=== PATIENT | female | born 1955 | race Caucasian/White ===

== ENCOUNTER 2016-07-25 00:20 | Emergency (ER) | payer MEDICARE ==
[~2016-07-25] VITALS: Ht 170.2 cm; Wt 68.0 kg
[~2016-07-25 00:20] MED LIST: AUGM875T PO; CELE20TA PO; CEPH-460 PO; CHLO25CA2 PO; CIPR-9 PO; CLON0.1T PO; METF500T PO; ROSU40 PO; SYNT25TA PO
[2016-07-25 00:23] VITALS: BP 134/74; PULSE 66; RESP 14; TEMP 98.1; O2SAT 93
[2016-07-25] MEDS ORDERED: ONDANSETRON HCL 4 MG/2 ML VIAL IVP ONE (00:30)
[2016-07-25] MEDS ORDERED: SODIUM CHLORIDE 0.9% FLUSH 5 ML FLUSH IVF PRN (00:30)
--- NOTE | 2016-07-25 00:52 | PD ---
HPI Chief Complaint: Syncope/Near-Syncope Time Seen by Provider: 00:23 Travel History International Travel<30 days: No Contact w/Intl Traveler<30days: No Traveled to known affect area: No History of Present Illness HPI 60-year-old female with history of HLD, DM and frequent syncopal episodes here with complaint of syncope. Patient states that she was at a bar, and had a half a drink. [place] her blood sugar going low and checked it it was in the 40s. Drink orange juice and had candy and by the time EMS arrived blood sugar had normalized. Patient apparently had several brief syncopal episodes while at the bar prompting glenna to call 911. Patient states she feels belchy, lightheaded and nauseated. No chest pain, shortness of breath. Reported history of frequent syncope, unknown etiology. PFSH Past Medical History Hx Anticoagulant Therapy: Yes (81MG LOW DOSE ASA) Arthritis: No Blood Disorders: No Anxiety: Yes Depression: Yes Heart Rhythm Problems: No Cancer: No Cardiovascular Problems: No High Cholesterol: Yes COPD: No Cerebrovascular Accident: No Diabetes: Yes Diminished Hearing: No Endocrine: No Gastrointestinal Disorders: No Genitourinary: Yes (frequent UTI) Headaches: Yes Immune Disorder: No Musculoskeletal: No Neurologic: Yes Psychiatric: Yes Reproductive: No Respiratory: No Migraines: No Seizures: No Sickle Cell Disease: No Thyroid Disease: Yes Menopausal: Yes Dilation and Curettage (D&C): Yes Past Surgical History Abdominal Surgery: No AICD: No Arteriovenous Shunt: No Cardiac Surgery: No Ear Surgery: No Endocrine Surgery: No Eye Surgery: No Genitourinary Surgery: No Gynecologic Surgery: Yes (D&C 2005) Insulin Pump: No Joint Replacement: No Neurologic Surgery: No Oral Surgery: Yes (teeth pulled) Pacemaker: No Thoracic Surgery: No Other Surgery: Yes (knee surgery 2003) Social History Alcohol Use: No Tobacco Use: Yes Substance Use: No Allergies-Medications (Allergen,Severity, Reaction): Coded Allergies: Codeine (Verified Allergy, Severe, FAINTED/NAUSEA AND VOMITING, 07/25/16) Reported Meds & Prescriptions Reported Meds & Active Scripts Active Reported Vistaril (Hydroxyzine Pamoate) 50 Mg Cap 50 Mg PO BID Synthroid (Levothyroxine Sodium) 25 Mcg Tab 25 Mcg PO DAILY Crestor (Rosuvastatin Calcium) 40 Mg Tab 40 Mg PO DAILY Clonidine (Clonidine HCl) 0.1 Mg Tab 0.25 Mg PO BID Metformin (Metformin HCl) 500 Mg Tab 500 Mg PO BIDPC With meals Celexa (Citalopram Hydrobromide) 20 Mg Tab 20 Mg PO DAILY Chlordiazepoxide (Chlordiazepoxide HCl) 25 Mg Cap 25 Mg PO QID PRN Review of Systems Except as stated in HPI: all other systems reviewed are Neg Physical Exam Narrative GENERAL: Middle-aged female in no acute distress SKIN: Warm and dry. HEAD: Normocephalic. EYES: No scleral icterus. No injection or drainage. ENT: Mucous membranes pink and moist. NECK: Supple CARDIOVASCULAR: Regular rate and rhythm. No murmur appreciated. RESPIRATORY: No accessory muscle use. Clear to auscultation. Breath sounds equal bilaterally. GASTROINTESTINAL: Abdomen soft, non-tender, nondistended. MUSCULOSKELETAL: No obvious deformities. No edema. NEUROLOGICAL: Awake and alert. No obvious cranial nerve deficits. Motor grossly within normal limits. Normal speech. PSYCHIATRIC: Blunted mood and affect Data Data Last Documented VS Vital Signs Date Time Temp Pulse Resp B/P Pulse Ox O2 Delivery O2 Flow Rate FiO2 07/25/16:23 98.1 66 14 134/74 93 Orders Electrocardiogram (07/25/16:) Complete Blood Count With Diff (07/25/16:) Comprehensive Metabolic Panel (07/25/16:) Magnesium (Mg) (07/25/16:23) Troponin I (07/25/16:) Ecg Monitoring (07/25/16:) Iv Access Insert/Monitor (07/25/16:) Oximetry (07/25/16:) Ondansetron Inj (Zofran Inj) (07/25/16 00:30) Sodium Chloride 0.9% Flush (Ns Flush) (07/25/16 00:30) Lipase (07/25/16:23) Alcohol (Ethanol) (07/25/16:23) Labs Laboratory Tests Test 07/25/16 00:27 White Blood Count 9.6 TH/MM3 Red Blood Count 4.91 MIL/MM3 Hemoglobin 14.2 GM/DL Hematocrit 40.6 % Mean Corpuscular Volume 82.7 FL Mean Corpuscular Hemoglobin 29.0 PG Mean Corpuscular Hemoglobin 35.0 % Concent Red Cell Distribution Width 15.0 % Platelet Count 305 TH/MM3 Mean Platelet Volume 7.8 FL Neutrophils (%) (Auto) 46.5 % Lymphocytes (%) (Auto) 42.1 % Monocytes (%) (Auto) 6.6 % Eosinophils (%) (Auto) 3.6 % Basophils (%) (Auto) 1.2 % Neutrophils # (Auto) 4.5 TH/MM3 Lymphocytes # (Auto) 4.1 TH/MM3 Monocytes # (Auto) 0.6 TH/MM3 Eosinophils # (Auto) 0.3 TH/MM3 Basophils # (Auto) 0.1 TH/MM3 CBC Comment DIFF FINAL Differential Comment Sodium Level 133 MEQ/L Potassium Level 3.9 MEQ/L Chloride Level 99 MEQ/L Carbon Dioxide Level 24.5 MEQ/L Anion Gap 10 MEQ/L Blood Urea Nitrogen 12 MG/DL Creatinine 0.66 MG/DL Estimat Glomerular Filtration 92 ML/MIN Rate Random Glucose 98 MG/DL Calcium Level 8.1 MG/DL Magnesium Level 2.0 MG/DL Total Bilirubin 0.3 MG/DL Aspartate Amino Transf 12 U/L (AST/SGOT) Alanine Aminotransferase 23 U/L (ALT/SGPT) Alkaline Phosphatase 100 U/L Troponin I LESS THAN 0.02 NG/ML Total Protein 6.7 GM/DL Albumin 3.3 GM/DL Lipase 262 U/L Ethyl Alcohol Level LESS THAN 3 MG/DL MDM Medical Decision Making Medical Screen Exam Complete: Yes Emergency Medical Condition: Yes Medical Record Reviewed: Yes Differential Diagnosis 60-year-old diabetic with frequent syncope here with complaint of syncope, nausea and belching which started while she was drinking at a bar. Differential includes alcohol intoxication, hypoglycemia, dehydration, electrolyte abnormality, arrhythmia, symptomatic anemia, ACS, vasovagal spells, neurocardiogenic syncope. Narrative Course Patient placed on monitor, IV established and blood obtained. Twelve-lead EKG shows sinus rhythm without notable ST abnormalities, normal intervals. No evidence of prolonged QT, WPW, Brugada. Patient was given 4 mg Zofran. CBC, CMP, lipase, magnesium, troponin, blood alcohol level obtained and unremarkable. Patient reassured and discharged home. Diagnosis Primary Impression: Syncope Qualified Code: R55 - Syncope, unspecified syncope type Referrals: Primary Care Physician call for appointment Additional Instructions: Follow-up with primary care provider as instructed. Blood work, EKG today were normal. Med/Other Pt SpecificInfo: No Change to Meds Disposition: 01 DISCHARGE HOME Condition: Stable Brittany Chavez MD Jul 25, 2016 00:52
[2016-07-25 00:54] LABS: AUTOMATED NEUTROPHIL # 4.5 TH/MM3 (1.8-7.7); BASOPHIL # 0.1 TH/MM3 (0-0.2); BASOPHIL % 1.2 % (0.0-2.0); EOSINOPHIL # 0.3 TH/MM3 (0-0.4); EOSINOPHIL % 3.6 % (0.0-4.0); HEMATOCRIT 40.6 % (35.0-46.0); HEMO FLAGS DIFF FINAL; LYMPH % 42.1 % (9.0-44.0); LYMPHOCYTE # 4.1 TH/MM3 (1.0-4.8); MEAN CELL VOLUME 82.7 FL (80.0-100.0); MONO % 6.6 % (0.0-8.0); NEUT % 46.5 % (16.0-70.0); PLATELET COUNT 305 TH/MM3 (150-450); RED BLOOD COUNT 4.91 MIL/MM3 (4.00-5.30); WHITE BLOOD COUNT 9.6 TH/MM3 (4.0-11.0)
[2016-07-25] MEDS ORDERED: VIST50CA PO (00:55)
[2016-07-25 01:16] LABS: ALKALINE PHOSPHATASE 100 U/L (45-117); ALT (GPT) 23 U/L (10-53); ANION GAP 10 MEQ/L (5-15); AST (GOT) 12 U/L (15-37); BICARBONATE 24.5 MEQ/L (21.0-32.0); BLOOD UREA NITROGEN 12 MG/DL (7-18); CHLORIDE 99 MEQ/L (98-107); GLOMERULAR FILTRATION RATE 92 ML/MIN (>89); POTASSIUM 3.9 MEQ/L (3.5-5.1); SODIUM (NA) 133 MEQ/L (136-145); TOTAL BILIRUBIN ADULT 0.3 MG/DL (0.2-1.0)
[2016-07-25 02:25] VITALS: BP 130/57
== END 2016-07-25 02:34 | disposition home or self-care (01) ==
LOC: NEPE 00:20
DX: R55 Syncope and collapse (principal); E11.9 Type 2 diabetes mellitus without complications; E78.00 Pure hypercholesterolemia, unspecified; Z72.0 Tobacco use; Z79.84 Long term (current) use of oral hypoglycemic drugs; Z79.82 Long term (current) use of aspirin
CPT/HCPCS: 80053; 80320; 83690; 83735; 84484; 85025; 96374; 99284; J2405

== ENCOUNTER 2017-01-16 14:40 | Emergency (ER) | payer MEDICARE, OTHER ==
[~2017-01-16] VITALS: Ht 170.2 cm; Wt 70.0 kg
[~2017-01-16 14:40] MED LIST changes: -AUGM875T PO; -CEPH-460 PO; -CIPR-9 PO; +VIST50CA PO
[2017-01-16 14:41] VITALS: BP 141/61; TEMP 97.7; O2SAT 95
[2017-01-16 16:23] LABS: BLOOD, URINE SMALL (NEG); COMMENT (UR) CULT NOT INDICATED; CULTURE IF INDICATED CULT NOT INDICATED; GLUCOSE,URINE NEG (NEG); KETONE, URINE NEG (NEG); NITRITE,URINE NEG (NEG); PH, URINE 5.5 (5.0-8.5); SQUAMOUS EPITHELIAL CELL URINE 1 /hpf (0-5); URINE COLOR YELLOW (YELLW/STRAW)
[2017-01-16] MEDS ORDERED: SODIUM CHLOR 0.9% 1000 ML INJ 1,000 ML IV SCH (17:02)
--- NOTE | 2017-01-16 17:06 | PD ---
HPI Chief Complaint: Complaint Time Seen by Provider: 17:00 Travel History International Travel<30 days: No Contact w/Intl Traveler<30days: No Traveled to known affect area: No History of Present Illness HPI 61-year-old female here for evaluation of urinary frequency, dysuria, and left flank pain. Patient reports that she was seen by her primary care physician 2 days ago for the same symptoms. She reports history of frequent UTIs and has been on several different antibiotics. She reports having a fever of 101F at home. Back pain started in her lower back, radiates to her left flank into her lower abdomen. Pain is sharp, moderate, worse with movements and palpation. No urinary or bowel incontinence or retention. No paresthesias or motor deficits. PFSH Past Medical History Hx Anticoagulant Therapy: Yes (81MG LOW DOSE ASA) Arthritis: No Blood Disorders: No Anxiety: Yes (Panic attacks) Depression: Yes Heart Rhythm Problems: No Cancer: No Cardiovascular Problems: No High Cholesterol: Yes COPD: No Cerebrovascular Accident: No Diabetes: Yes Diminished Hearing: No Endocrine: No Gastrointestinal Disorders: No Genitourinary: Yes (frequent UTI) Headaches: Yes Immune Disorder: No Musculoskeletal: No Neurologic: Yes Psychiatric: Yes Reproductive: No Respiratory: No Migraines: No Seizures: No Sickle Cell Disease: No Thyroid Disease: Yes Menopausal: Yes : 3 Para: 3 Dilation and Curettage (D&C): Yes Past Surgical History Abdominal Surgery: No AICD: No Arteriovenous Shunt: No Cardiac Surgery: No Ear Surgery: No Endocrine Surgery: No Eye Surgery: No Genitourinary Surgery: No Gynecologic Surgery: Yes (D&C 2005) Insulin Pump: No Joint Replacement: No Neurologic Surgery: No Oral Surgery: Yes (teeth pulled) Pacemaker: No Thoracic Surgery: No Other Surgery: Yes (knee surgery 2003) Social History Alcohol Use: Yes (Social) Tobacco Use: Yes (07/12 PPD) Substance Use: No Allergies-Medications (Allergen,Severity, Reaction): Coded Allergies: Codeine (Verified Allergy, Severe, FAINTED/NAUSEA AND VOMITING, 01/16/17) Reported Meds & Prescriptions Reported Meds & Active Scripts Active Reported Chlordiazepoxide HCl 25 Mg Capsule 2 Cap PO DAILY Vistaril (Hydroxyzine Pamoate) 50 Mg Cap 50 Mg PO BID Synthroid (Levothyroxine Sodium) 25 Mcg Tab 25 Mcg PO DAILY Crestor (Rosuvastatin Calcium) 40 Mg Tab 40 Mg PO DAILY Metformin (Metformin HCl) 500 Mg Tab 500 Mg PO BIDPC With meals Celexa (Citalopram Hydrobromide) 20 Mg Tab 20 Mg PO DAILY Review of Systems Except as stated in HPI: all other systems reviewed are Neg Physical Exam Narrative GENERAL: Well-developed, well-nourished, no apparent distress. SKIN: Focused skin assessment warm/dry. No rash. HEAD: Atraumatic. Normocephalic. EYES: Pupils equal and round. No scleral icterus. No injection or drainage. ENT: Mucous membranes pink and moist. NECK: Trachea midline. No JVD. CARDIOVASCULAR: Regular rate and rhythm. No murmur appreciated. RESPIRATORY: No accessory muscle use. Clear to auscultation. Breath sounds equal bilaterally. GASTROINTESTINAL: Abdomen soft, nondistended. Moderate suprapubic tenderness without peritoneal signs. Normal bowel sounds. MUSCULOSKELETAL: No obvious deformities. No clubbing. No cyanosis. No edema. No midline vertebral step-off or tenderness. NEUROLOGICAL: Awake and alert. No obvious cranial nerve deficits. Motor grossly within normal limits. Normal speech. Normal motor and sensory to all 4 extremity's. No saddle anesthesia. PSYCHIATRIC: Appropriate mood and affect; insight and judgment normal. Data Data Last Documented VS Vital Signs Date Time Temp Pulse Resp B/P Pulse Ox O2 Delivery O2 Flow Rate FiO2 01/16/17 14:41 97.7 95 22 141/61 95 Orders Urinalysis - C+S If Indicated (01/16/17 15:15) Complete Blood Count With Diff (01/16/17 17:02) Comprehensive Metabolic Panel (01/16/17 17:02) Lipase (01/16/17 17:02) Prothrombin Time / Inr (Pt) (01/16/17 17:02) Act Partial Throm Time (Ptt) (01/16/17 17:02) Ct Abd/Pel W Iv Contrast(Rout) (01/16/17 17:02) Iv Access Insert/Monitor (01/16/17 17:02) Ecg Monitoring (01/16/17 17:02) Oximetry (01/16/17 17:02) Morphine Inj (Morphine Inj) (01/16/17 17:15) Ondansetron Inj (Zofran Inj) (7/9/17 17:15) Sodium Chlor 0.9% 1000 Ml Inj (Ns 1000 M (01/16/17 17:02) Sodium Chloride 0.9% Flush (Ns Flush) (01/16/17 17:15) Iohexol 350 Inj (Omnipaque 350 Inj) (01/16/17 18:14) Urine Culture (01/16/17 18:14) Labs Laboratory Tests Test 01/16/17 01/16/17 15:26 17:31 Urine Color YELLOW Urine Turbidity CLEAR Urine pH 5.5 Urine Specific [place] 1.011 Urine Protein NEG mg/dL Urine Glucose (UA) NEG mg/dL Urine Ketones NEG mg/dL Urine Occult Blood SMALL Urine Nitrite NEG Urine Bilirubin NEG Urine Urobilinogen LESS THAN 2.0 MG/DL Urine Leukocyte Esterase LARGE Urine RBC 1 /hpf Urine WBC 5 /hpf Urine Squamous Epithelial 1 /hpf Cells Urine Amorphous Sediment RARE Microscopic Urinalysis Comment CULT NOT INDICATED White Blood Count 7.4 TH/MM3 Red Blood Count 4.90 MIL/MM3 Hemoglobin 14.0 GM/DL Hematocrit 42.8 % Mean Corpuscular Volume 87.5 FL Mean Corpuscular Hemoglobin 28.7 PG Mean Corpuscular Hemoglobin 32.8 % Concent Red Cell Distribution Width 14.5 % Platelet Count 274 TH/MM3 Mean Platelet Volume 7.8 FL Neutrophils (%) (Auto) 42.0 % Lymphocytes (%) (Auto) 47.3 % Monocytes (%) (Auto) 6.9 % Eosinophils (%) (Auto) 3.2 % Basophils (%) (Auto) 0.6 % Neutrophils # (Auto) 3.1 TH/MM3 Lymphocytes # (Auto) 3.5 TH/MM3 Monocytes # (Auto) 0.5 TH/MM3 Eosinophils # (Auto) 0.2 TH/MM3 Basophils # (Auto) 0.0 TH/MM3 CBC Comment DIFF FINAL Differential Comment Prothrombin Time 10.4 SEC Prothromb Time International 0.9 RATIO Ratio Activated Partial 26.5 SEC Thromboplast Time Sodium Level 138 MEQ/L Potassium Level 4.5 MEQ/L Chloride Level 105 MEQ/L Carbon Dioxide Level 29.6 MEQ/L Anion Gap 3 MEQ/L Blood Urea Nitrogen 12 MG/DL Creatinine 0.84 MG/DL Estimat Glomerular Filtration 69 ML/MIN Rate Random Glucose 93 MG/DL Calcium Level 9.0 MG/DL Total Bilirubin 0.4 MG/DL Aspartate Amino Transf 19 U/L (AST/SGOT) Alanine Aminotransferase 30 U/L (ALT/SGPT) Alkaline Phosphatase 111 U/L Total Protein 7.0 GM/DL Albumin 3.5 GM/DL Lipase 284 U/L [facility] Medical Decision Making Medical Screen Exam Complete: Yes Emergency Medical Condition: Yes Medical Record Reviewed: Yes Differential Diagnosis UTI, polynephritis, nephrolithiasis, ureterolithiasis, pyelonephritis, colitis, diverticulitis, musculoskeletal pain, dissection, AAA, Narrative Course Vital signs show heart rate 95, blood pressure 141/61, pulse ox 95% on room air , oral temp of 97.7F. CBC is unremarkable. CMP is unremarkable. Lipase is 284. UA shows small occult blood, large leukocyte esterase, 5 WBCs, negative nitrites. Urine culture ordered. CT abdomen pelvis: CONCLUSION: 1. The kidneys are within normal limits with no renal calculi or obstruction. There is a simple cyst in the left kidney. 2. Mild to moderate hepatic steatosis. Patient was made aware of all findings. She is still complaining of left flank pain and is requesting an antibiotic. I think this is reasonable given her symptoms of dysuria and increased urinary frequency as well as leukocyte esterase and occult hematuria. She has no red flags for low back pain. She has had similar symptoms in the past. Plan is to give her a dose of IV Rocephin here in the emergency department and discharged home with a perception for Macrobid. Again urine cultures were ordered. Patient is stable for discharge home with outpatient follow-up with her primary care physician this week. She was informed on when to return to the emergency department. She verbalizes understanding and agreement with plan. Diagnosis Primary Impression: Flank pain Additional Impression: Dysuria Referrals: Primary Care Physician 3 days Additional Instructions: Follow-up with your primary care physician this week. Return to the emergency department for worsening symptoms or any other concerns. Scripts Hydrocodone-Acetaminophen (Lortab)5-325 Mg Tab1 Tab PO Q6H PRN (PAIN) #10 TAB Ref 0 Prov:Napoleon Guthrie MD 01/16/17 Nitrofurantoin Monohydrate Macrocrystals (Macrobid)100 Mg [id number] Mg PO BID 7 Days Ref 0 Prov:Napoleon Guthrie MD 01/16/17 Disposition: 01 DISCHARGE HOME Condition: Stable Napoleon Guthrie MD Jan 16, 2017 17:06
[2017-01-16] MEDS ORDERED: CHLO25CA9 PO (17:07)
[2017-01-16] MEDS ORDERED: SODIUM CHLORIDE 0.9% FLUSH 10 ML FLUSH IV FLUSH PRN (17:15)
[2017-01-16] MEDS ORDERED: ONDANSETRON HCL 4 MG/2 ML VIAL IVP ONE (17:15)
[2017-01-16] MEDS ORDERED: MORPHINE SULFATE 4 MG/ML INJ IV PUSH ONE (17:15)
[2017-01-16 17:59] LABS: AUTOMATED NEUTROPHIL # 3.1 TH/MM3 (1.8-7.7); BASOPHIL % 0.6 % (0.0-2.0); EOSINOPHIL # 0.2 TH/MM3 (0-0.4); EOSINOPHIL % 3.2 % (0.0-4.0); HEMATOCRIT 42.8 % (35.0-46.0); HEMO FLAGS DIFF FINAL; LYMPH % 47.3 % (9.0-44.0); LYMPHOCYTE # 3.5 TH/MM3 (1.0-4.8); MEAN CELL VOLUME 87.5 FL (80.0-100.0); MEAN CORPUSCULAR HEMOGLOBIN 28.7 PG (27.0-34.0); MEAN CORPUSCULAR HGB CONC 32.8 % (32.0-36.0); MONO % 6.9 % (0.0-8.0); PLATELET COUNT 274 TH/MM3 (150-450); RED CELL DISTRIBUTION WIDTH 14.5 % (11.6-17.2); WHITE BLOOD COUNT 7.4 TH/MM3 (4.0-11.0)
[2017-01-16] MEDS ORDERED: IOHEXOL 350 MG/ML 10 ML VIAL (for RAD DIAG) IV ONE (18:14)
[2017-01-16 18:18] LABS: ANION GAP 3 MEQ/L (5-15); AST (GOT) 19 U/L (15-37); BICARBONATE 29.6 MEQ/L (21.0-32.0); BLOOD UREA NITROGEN 12 MG/DL (7-18); CHLORIDE 105 MEQ/L (98-107); GLOMERULAR FILTRATION RATE 69 ML/MIN (>89); POTASSIUM 4.5 MEQ/L (3.5-5.1); SODIUM (NA) 138 MEQ/L (136-145)
[2017-01-16 18:19] LABS: ALT (GPT) 30 U/L (10-53)
[2017-01-16 18:21] LABS: ALKALINE PHOSPHATASE 111 U/L (45-117); TOTAL BILIRUBIN ADULT 0.4 MG/DL (0.2-1.0)
[2017-01-16 18:23] LABS: APTT (PATIENT) 26.5 SEC (24.3-30.1); INTERNATIONAL NORMALIZED RATIO 0.9 RATIO; PROTHROMBIN TIME - PATIENT 10.4 SEC (9.8-11.6)
--- NOTE | 2017-01-16 18:34 | RADRPT ---
EXAM DATE/TIME: 01/16/2017 18:12 [facility] COMPARISON: CT ABDOMEN & PELVIS W/O CONTRAST, February 07, 2016, 2:11. INDICATIONS : Bilateral flank pain today. IV CONTRAST: 96 cc Omnipaque 350 (iohexol) IV ORAL CONTRAST: No oral contrast ingested. RADIATION DOSE: 13.66 CTDIvol (mGy) MEDICAL HISTORY : diabetes SURGICAL HISTORY : None. ENCOUNTER: Initial ACUITY: 1 day PAIN SCALE: 5/10 LOCATION: Bilateral flank TECHNIQUE: Volumetric scanning of the abdomen and pelvis was performed. Using automated exposure control and ad justment of the mA and/or kV according to patient size, radiation dose was kept as low as reasonably achievable to obtain optimal diagnostic quality images. DICOM format image data is available electro nically for review and comparison. FINDINGS: LOWER LUNGS: Is mild scarring or atelectasis in portions of lung bases. LIVER: Homogeneous density without lesion. There is no dilation of the biliary tree. No calcified gallston es. There is moderate hepatic steatosis. SPLEEN: Normal size without lesion. PANCREAS: Within normal limits. KIDNEYS: Normal in size and shape. There is no solid mass, stone or hydronephrosis. There is a simple cyst in the left kidney measuring up to 2 cm. The visualized portions of the ureters are unremarkable. ADRENAL GLANDS: Within normal limits. VASCULAR: There is no aortic aneurysm. Chronic changes are present calcification in plaque. BOWEL/MESENTERY: The stomach, small bowel, and colon demonstrate no acute abnormality. There is no free intraperitone al air or fluid. ABDOMINAL WALL: Within normal limits. RETROPERITONEUM: There is no lymphadenopathy. BLADDER: No wall thickening or mass. REPRODUCTIVE: Within normal limits. INGUINAL: There is no lymphadenopathy or hernia. MUSCULOSKELETAL: Within normal limits for patient age. CONCLUSION: 1. The kidneys are within normal limits with no renal calculi or obstruction. There is a simple cyst in the left kidney. 2. Mild to moderate hepatic steatosis. Miguelito Mcmahan MD on January 16, 2017 at 18:29 Board Certified Radiologist. This report was verified electronically.
[2017-01-16] MEDS ORDERED: MACR100C2 PO (18:51)
[2017-01-16] MEDS ORDERED: HYDR-3533 PO (18:51)
[2017-01-16] MEDS ORDERED: cefTRIAXone INJ 1,000 MG in SODIUM CHLORIDE 0.9% INJ 100 ML IV ONE (19:00)
== END 2017-01-16 19:44 | disposition home or self-care (01) ==
LOC: NEPD 14:40
DX: R10.9 Unspecified abdominal pain (principal); R30.0 Dysuria; N28.1 Cyst of kidney, acquired; K76.0 Fatty (change of) liver, not elsewhere classified; E11.9 Type 2 diabetes mellitus without complications; E78.00 Pure hypercholesterolemia, unspecified; F41.9 Anxiety disorder, unspecified; F32.9 Major depressive disorder, single episode, unspecified; Z79.899 Other long term (current) drug therapy
CPT/HCPCS: 74177; 80053; 81001; 83690; 85025; 85610; 85730; 87086; 96361; 96374; 96375; 99285; J0696; J2270; J2405; J7030; Q9967

== ENCOUNTER 2017-01-18 14:50 | Emergency (ER) | payer MEDICARE ==
[~2017-01-18] VITALS: Ht 170.2 cm; Wt 72.0 kg
[~2017-01-18 14:50] MED LIST changes: -CHLO25CA2 PO; +CHLO25CA9 PO; -CLON0.1T PO; +HYDR-3533 PO; +MACR100C2 PO
[2017-01-18 14:52] VITALS: BP 176/78; PULSE 91; RESP 15; TEMP 98.2; O2SAT 98
--- NOTE | 2017-01-18 15:34 | PD ---
Physical Exam Time Seen by Provider: 15:32 Narrative 61 y/o female here with several days of urinary hesitancy, back/lower abdomen pain. Seen here on 01/16 for this issue. Vital signs reviewed. Seen at triage desk. Awaiting bed placement. Data Data Last Documented VS Vital Signs Date Time Temp Pulse Resp B/P Pulse Ox O2 Delivery O2 Flow Rate FiO2 01/18/17 14:52 98.2 91 15 176/78 98 MDM Medical Record Reviewed: Yes Supervised Visit with NICHO: Micah Bateman Jan 18, 2017 15:34
[2017-01-18 16:51] LABS: AUTOMATED NEUTROPHIL # 4.3 TH/MM3 (1.8-7.7); BASOPHIL # 0.1 TH/MM3 (0-0.2); BASOPHIL % 0.7 % (0.0-2.0); EOSINOPHIL # 0.2 TH/MM3 (0-0.4); EOSINOPHIL % 2.5 % (0.0-4.0); HEMATOCRIT 46.3 % (35.0-46.0); HEMO FLAGS DIFF FINAL; LYMPH % 39.9 % (9.0-44.0); LYMPHOCYTE # 3.3 TH/MM3 (1.0-4.8); MEAN CORPUSCULAR HEMOGLOBIN 29.1 PG (27.0-34.0); MEAN CORPUSCULAR HGB CONC 33.8 % (32.0-36.0); MONO % 5.1 % (0.0-8.0); NEUT % 51.8 % (16.0-70.0); PLATELET COUNT 309 TH/MM3 (150-450); RED BLOOD COUNT 5.38 MIL/MM3 (4.00-5.30); RED CELL DISTRIBUTION WIDTH 14.8 % (11.6-17.2); WHITE BLOOD COUNT 8.2 TH/MM3 (4.0-11.0)
[2017-01-18 16:54] LABS: BACTERIA, URINE RARE /hpf; BLOOD, URINE NEG (NEG); COMMENT (UR) CULT NOT INDICATED; CULTURE IF INDICATED CULT NOT INDICATED; GLUCOSE,URINE NEG (NEG); KETONE, URINE NEG (NEG); NITRITE,URINE NEG (NEG); PH, URINE 6.5 (5.0-8.5); SQUAMOUS EPITHELIAL CELL URINE <1 /hpf (0-5); URINE COLOR YELLOW (YELLW/STRAW)
[2017-01-18] MEDS ORDERED: PHENAZOPYRIDINE HCL 200 MG TAB PO ONE (17:00)
--- NOTE | 2017-01-18 17:05 | PD ---
HPI Chief Complaint: Complaint Time Seen by Provider: 16:54 Travel History International Travel<30 days: No Contact w/Intl Traveler<30days: No Traveled to known affect area: No History of Present Illness HPI Patient is a 61-year-old female presenting to emergency for evaluation of urinary symptoms. Patient states she's had urgency and frequency. She states her symptoms have been on and off for one year. She reports frequent urinary tract infections, she reports being evaluated by a urologist in the past as well as her primary care provider last week. She reports lower back pain and lower abdominal pain. Patient was seen and evaluated on 01/16/17 with same complaints. She denies a fever, chills, nausea, vomiting, chest pain, shortness of breath, numbness or weakness in her extremities, saddle paresthesia. PFSH Past Medical History Hx Anticoagulant Therapy: Yes (81MG ASA) Arthritis: No Blood Disorders: No Anxiety: Yes (Panic attacks) Depression: Yes Heart Rhythm Problems: No Cancer: No Cardiovascular Problems: No High Cholesterol: Yes COPD: No Cerebrovascular Accident: No Diabetes: Yes Patient Takes Glucophage: Yes Diminished Hearing: No Endocrine: No Gastrointestinal Disorders: No Genitourinary: Yes (frequent UTI) Headaches: Yes Immune Disorder: No Musculoskeletal: No Neurologic: Yes Psychiatric: Yes Reproductive: No Respiratory: No Migraines: No Seizures: No Sickle Cell Disease: No Thyroid Disease: Yes Menopausal: Yes : 3 Para: 3 Dilation and Curettage (D&C): Yes Past Surgical History Abdominal Surgery: No AICD: No Arteriovenous Shunt: No Cardiac Surgery: No Ear Surgery: No Endocrine Surgery: No Eye Surgery: No Genitourinary Surgery: No Gynecologic Surgery: Yes (D&C 2005) Insulin Pump: No Joint Replacement: No Neurologic Surgery: No Oral Surgery: Yes (teeth pulled) Pacemaker: No Thoracic Surgery: No Other Surgery: Yes (knee surgery 2003) Social History Alcohol Use: Yes (Social) Tobacco Use: Yes (1/2 PPD) Substance Use: No Allergies-Medications (Allergen,Severity, Reaction): Coded Allergies: Codeine (Verified Allergy, Severe, FAINTED/NAUSEA AND VOMITING, 01/18/17) Reported Meds & Prescriptions Reported Meds & Active Scripts Active Lortab (Hydrocodone-Acetaminophen) 5-325 Mg Tab 1 Tab PO Q6H PRN Macrobid (Nitrofurantoin Monoh/Nitrofur Macro) 100 Mg Cap 100 Mg PO BID 7 Days Reported Chlordiazepoxide HCl 25 Mg Capsule 2 Cap PO DAILY Vistaril (Hydroxyzine Pamoate) 50 Mg Cap 50 Mg PO BID Synthroid (Levothyroxine Sodium) 25 Mcg Tab 25 Mcg PO DAILY Crestor (Rosuvastatin Calcium) 40 Mg Tab 40 Mg PO DAILY Metformin (Metformin HCl) 500 Mg Tab 500 Mg PO BIDPC With meals Celexa (Citalopram Hydrobromide) 20 Mg Tab 20 Mg PO DAILY Review of Systems Except as stated in HPI: all other systems reviewed are Neg Gastrointestinal: Positive: Abdominal Pain Genitourinary: Positive: Urgency, Frequency, Hesitancy, Pelvic Pain Musculoskeletal: Positive: Myalgias Physical Exam Narrative GENERAL: Well-developed, well-nourished, alert female. Resting in no acute distress. SKIN: Warm and dry. HEAD: Atraumatic. Normocephalic. EYES: Pupils equal and round. No scleral icterus. No injection or drainage. ENT: No nasal bleeding or discharge. Mucous membranes pink and moist. NECK: Trachea midline. No JVD. CARDIOVASCULAR: Regular rate and rhythm. RESPIRATORY: No accessory muscle use. Clear to auscultation. Breath sounds equal bilaterally. GASTROINTESTINAL: Abdomen soft, tender to palpation in left and right lower quadrants, nondistended. Hepatic and splenic margins not palpable. Positive bowel sounds and no rebound MUSCULOSKELETAL: Extremities without clubbing, cyanosis, or edema. No obvious deformities. Tenderness per patient to paraspinal musculature in the lumbar region. NEUROLOGICAL: Awake and alert. No obvious cranial nerve deficits. Motor grossly within normal limits. Five out of 5 muscle strength in the arms and legs. Normal speech. PSYCHIATRIC: Appropriate mood and affect; insight and judgment normal. Data Data Last Documented VS Vital Signs Date Time Temp Pulse Resp B/P Pulse Ox O2 Delivery O2 Flow Rate FiO2 01/18/17 14:52 98.2 91 15 176/78 98 Orders Complete Blood Count With Diff (01/18/17 15:38) Comprehensive Metabolic Panel (01/18/17 15:38) Lipase (01/18/17 15:38) Urinalysis - C+S If Indicated (01/18/17 15:38) Urinary Catheter Insert/Apply (01/18/17 16:25) Phenazopyridine (Pyridium) (01/18/17 17:00) Labs Laboratory Tests Test 01/18/17 16:15 White Blood Count 8.2 TH/MM3 Red Blood Count 5.38 MIL/MM3 Hemoglobin 15.6 GM/DL Hematocrit 46.3 % Mean Corpuscular Volume 86.0 FL Mean Corpuscular Hemoglobin 29.1 PG Mean Corpuscular Hemoglobin 33.8 % Concent Red Cell Distribution Width 14.8 % Platelet Count 309 TH/MM3 Mean Platelet Volume 7.8 FL Neutrophils (%) (Auto) 51.8 % Lymphocytes (%) (Auto) 39.9 % Monocytes (%) (Auto) 5.1 % Eosinophils (%) (Auto) 2.5 % Basophils (%) (Auto) 0.7 % Neutrophils # (Auto) 4.3 TH/MM3 Lymphocytes # (Auto) 3.3 TH/MM3 Monocytes # (Auto) 0.4 TH/MM3 Eosinophils # (Auto) 0.2 TH/MM3 Basophils # (Auto) 0.1 TH/MM3 CBC Comment DIFF FINAL Differential Comment Urine Color YELLOW Urine Turbidity CLEAR Urine pH 6.5 Urine Specific [place] 1.008 Urine Protein NEG mg/dL Urine Glucose (UA) NEG mg/dL Urine Ketones NEG mg/dL Urine Occult Blood NEG Urine Nitrite NEG Urine Bilirubin NEG Urine Urobilinogen LESS THAN 2.0 MG/DL Urine Leukocyte Esterase NEG Urine RBC 2 /hpf Urine WBC 1 /hpf Urine Squamous Epithelial <1 /hpf Cells Urine Bacteria RARE /hpf Microscopic Urinalysis Comment CULT NOT INDICATED Sodium Level 137 MEQ/L Potassium Level 4.3 MEQ/L Chloride Level 103 MEQ/L Carbon Dioxide Level 24.0 MEQ/L Anion Gap 10 MEQ/L Blood Urea Nitrogen 9 MG/DL Creatinine 0.77 MG/DL Estimat Glomerular Filtration 76 ML/MIN Rate Random Glucose 83 MG/DL Calcium Level 9.4 MG/DL Total Bilirubin 0.4 MG/DL Aspartate Amino Transf 22 U/L (AST/SGOT) Alanine Aminotransferase 27 U/L (ALT/SGPT) Alkaline Phosphatase 110 U/L Total Protein 7.3 GM/DL Albumin 3.6 GM/DL Lipase 189 U/L MDM Medical Decision Making Medical Screen Exam Complete: Yes Emergency Medical Condition: Yes Medical Record Reviewed: Yes Interpretation(s) Laboratory Tests Test 01/18/17 16:15 White Blood Count 8.2 TH/MM3 Red Blood Count 5.38 MIL/MM3 Hemoglobin 15.6 GM/DL Hematocrit 46.3 % Mean Corpuscular Volume 86.0 FL Mean Corpuscular Hemoglobin 29.1 PG Mean Corpuscular Hemoglobin 33.8 % Concent Red Cell Distribution Width 14.8 % Platelet Count 309 TH/MM3 Mean Platelet Volume 7.8 FL Neutrophils (%) (Auto) 51.8 % Lymphocytes (%) (Auto) 39.9 % Monocytes (%) (Auto) 5.1 % Eosinophils (%) (Auto) 2.5 % Basophils (%) (Auto) 0.7 % Neutrophils # (Auto) 4.3 TH/MM3 Lymphocytes # (Auto) 3.3 TH/MM3 Monocytes # (Auto) 0.4 TH/MM3 Eosinophils # (Auto) 0.2 TH/MM3 Basophils # (Auto) 0.1 TH/MM3 CBC Comment DIFF FINAL Differential Comment Urine Color YELLOW Urine Turbidity CLEAR Urine pH 6.5 Urine Specific [place] 1.008 Urine Protein NEG mg/dL Urine Glucose (UA) NEG mg/dL Urine Ketones NEG mg/dL Urine Occult Blood NEG Urine Nitrite NEG Urine Bilirubin NEG Urine Urobilinogen LESS THAN 2.0 MG/DL Urine Leukocyte Esterase NEG Urine RBC 2 /hpf Urine WBC 1 /hpf Urine Squamous Epithelial <1 /hpf Cells Urine Bacteria RARE /hpf Microscopic Urinalysis Comment CULT NOT INDICATED Sodium Level 137 MEQ/L Potassium Level 4.3 MEQ/L Chloride Level 103 MEQ/L Carbon Dioxide Level 24.0 MEQ/L Anion Gap 10 MEQ/L Blood Urea Nitrogen 9 MG/DL Creatinine 0.77 MG/DL Estimat Glomerular Filtration 76 ML/MIN Rate Random Glucose 83 MG/DL Calcium Level 9.4 MG/DL Total Bilirubin 0.4 MG/DL Aspartate Amino Transf 22 U/L (AST/SGOT) Alanine Aminotransferase 27 U/L (ALT/SGPT) Alkaline Phosphatase 110 U/L Total Protein 7.3 GM/DL Albumin 3.6 GM/DL Lipase 189 U/L Vital Signs Date Time Temp Pulse Resp B/P Pulse Ox O2 Delivery O2 Flow Rate FiO2 01/18/17 14:52 98.2 91 15 176/78 98 Differential Diagnosis Obstruction versus pyelonephritis versus cystitis versus other Narrative Course Patient is a 61-year-old female presenting to emergency evaluation of urinary symptoms. Accompanying those symptoms are low back pain and lower abdominal pain. Patient was seen and evaluated on 01/16/17, at that time she had a full workup. On 01/16/[address] of the abdomen and pelvis at that time showed no acute abnormality other than a renal cyst and hepatic steatosis. Also on 01/16/17 a CBC , chemistry were unremarkable at that time, urinalysis revealed a small amount of occult blood, large leukocyte esterase, rare amorphous sediment. Patient presented stating that she could not empty her bladder, a [place] catheter was placed and 375 cc of urine was drained. Patient's vital signs are stable, Pyridium ordered for bladder spasms. Back pain appears more musculoskeletal in nature, she does have tenderness to palpation in the paraspinal musculature in her lumbar region, there was no CVAT on exam. Urinalysis performed today is unremarkable CBC with no acute findings identified Chemistry with no acute findings. Discussed results with patient, she was offered a leg bag until she could follow up with her urologist. She was reassured at this time and there was no sign of infection no acute findings. Patient did not want the leg bag, she will be given a prescription for Pyridium. She was advised to follow-up with her primary care provider and urologist for further evaluation. She was given strict return precautions. Patient verbalized understanding of instructions. Patient is stable for discharge. Diagnosis Primary Impression: Symptoms involving urinary system Additional Impression: Low back pain Qualified Code: M54.5 - Bilateral low back pain without sciatica, unspecified chronicity Referrals: Minh George MD Urologist Patient Instructions: General Instructions, Urinary Urgency and Frequency (GEN) Additional Instructions: Follow-up with your primary doctor and urologist Return to emergency department for any new or worsening symptoms Take [id number] acetaminophen or ibuprofen as needed and as directed for back pain Apply warm moist heat to the lower back, continue range of motion exercises Med/Other Pt SpecificInfo: Prescription(s) given Scripts Phenazopyridine (Pyridium)100 Mg [id number] Mg PO Q8H PRN (DYSURIA) 3 Days Ref 0 Prov:Gayathri Sanchez 01/18/17 Disposition: 01 DISCHARGE HOME Condition: Stable Gayathri Sanchez Jan 18, 2017 17:05
[2017-01-18 17:22] LABS: ALT (GPT) 27 U/L (10-53)
[2017-01-18 17:23] LABS: ANION GAP 10 MEQ/L (5-15); AST (GOT) 22 U/L (15-37); BLOOD UREA NITROGEN 9 MG/DL (7-18); CHLORIDE 103 MEQ/L (98-107); GLOMERULAR FILTRATION RATE 76 ML/MIN (>89); POTASSIUM 4.3 MEQ/L (3.5-5.1); SODIUM (NA) 137 MEQ/L (136-145)
[2017-01-18 17:25] LABS: ALKALINE PHOSPHATASE 110 U/L (45-117); TOTAL BILIRUBIN ADULT 0.4 MG/DL (0.2-1.0)
[2017-01-18] MEDS ORDERED: PHEN0.4T PO (17:47)
== END 2017-01-18 18:21 | disposition home or self-care (01) ==
LOC: NEPE 14:50
DX: R10.30 Lower abdominal pain, unspecified (principal); M54.5 Low back pain
CPT/HCPCS: 51702; 80053; 81001; 83690; 85025

== ENCOUNTER 2017-03-04 16:32 | Emergency (ER) | payer MEDICARE ==
[~2017-03-04] VITALS: Ht 170.2 cm; Wt 80.0 kg
[~2017-03-04 16:32] MED LIST changes: +PHEN0.4T PO
[2017-03-04 16:34] VITALS: BP 120/68; PULSE 114; RESP 18; TEMP 98.1; O2SAT 95
--- NOTE | 2017-03-04 16:39 | PD ---
Physical Exam Date Seen by Provider: Mar 04, 2017 Time Seen by Provider: 16:38 Narrative 61- year old female complaining of productive cough for the past three weeks. She was seen by her primary care provider, but did not receive any treatment. She reports chills, but denies any fever. Awaiting bed placement, chest x-ray ordered in triage. Data Data Last Documented VS Vital Signs Date Time Temp Pulse Resp B/P (MAP) Pulse Ox O2 Delivery O2 Flow Rate FiO2 03/04/17 16:34 98.1 114 18 120/68 (85) 95 MDM Medical Record Reviewed: Yes Supervised Visit with NICHO: No Condition: Stable Kimberly Blackburn Mar 04, 2017 16:39
--- NOTE | 2017-03-04 17:19 | RADRPT ---
EXAM DATE/TIME: 03/04/2017 16:52 [facility] COMPARISON: No previous studies available for comparison. INDICATIONS : Cough, fever x 1 week. MEDICAL HISTORY : diabetes SURGICAL HISTORY : Total knee replacement, right. ENCOUNTER: Initial ACUITY: 1 day PAIN SCORE: 4/10 LOCATION: Bilateral chest FINDINGS: PA and lateral views of the chest demonstrate the lungs to be symmetrically aerated without evidence of mass, infiltrate or effusion. The cardiomediastinal contours are unremarkable. Osseous structure s are intact. CONCLUSION: 1. No acute cardiopulmonary disease. Sohail Montiel MD on March 04, 2017 at 17:17 Board Certified Radiologist. This report was verified electronically.
--- NOTE | 2017-03-04 20:05 | PD ---
HPI Chief Complaint: Cold / Flu Symptoms Time Seen by Provider: 19:57 Travel History International Travel<30 days: No Contact w/Intl Traveler<30days: No Traveled to known affect area: No History of Present Illness HPI 61-year-old white female presents emergency Department with a three-week history of cough and congestion. She states that she had seen Dr. Enio George the first week of her illness. She was told to perform subjective care. The patient states that she has progressed to develop fever and chills, congestion , colored sputum, posttussive nausea vomiting, and general malaise. She also goes on to state that she has chronic UTIs and has had increased urinary frequency. Patient states that her blood sugars have been between 80 and 120. Denies any shortness of breath. No abdominal pain. No stooling problems. PFSH Past Medical History Hx Anticoagulant Therapy: Yes (81MG ASA) Arthritis: No Blood Disorders: No Anxiety: Yes (Panic attacks) Depression: Yes Heart Rhythm Problems: No Cancer: No Cardiovascular Problems: No High Cholesterol: Yes COPD: No Cerebrovascular Accident: No Diabetes: Yes Patient Takes Glucophage: Yes Diminished Hearing: No Endocrine: No Gastrointestinal Disorders: No Genitourinary: Yes (frequent UTI) Headaches: Yes Immune Disorder: No Musculoskeletal: No Neurologic: Yes Psychiatric: Yes Reproductive: No Respiratory: No Migraines: No Seizures: No Sickle Cell Disease: No Thyroid Disease: Yes ?: Not Menopausal: Yes : 3 Para: 3 Dilation and Curettage (D&C): Yes Past Surgical History Abdominal Surgery: No AICD: No Arteriovenous Shunt: No Cardiac Surgery: No Ear Surgery: No Endocrine Surgery: No Eye Surgery: No Genitourinary Surgery: No Gynecologic Surgery: Yes (D&C 2005) Insulin Pump: No Joint Replacement: No Neurologic Surgery: No Oral Surgery: Yes (teeth pulled) Pacemaker: No Thoracic Surgery: No Other Surgery: Yes (knee surgery 2003) Social History Alcohol Use: Yes (Social) Tobacco Use: Yes (2 PPD) Substance Use: No Allergies-Medications (Allergen,Severity, Reaction): Coded Allergies: codeine (Unverified Allergy, Severe, FAINTED/NAUSEA AND VOMITING, 02/22/17) Reported Meds & Prescriptions Reported Meds & Active Scripts Active Pyridium (Phenazopyridine HCl) 100 Mg Tab 100 Mg PO Q8H PRN 3 Days Lortab (Hydrocodone-Acetaminophen) 5-325 Mg Tab 1 Tab PO Q6H PRN Macrobid (Nitrofurantoin Monoh/Nitrofur Macro) 100 Mg Cap 100 Mg PO BID 7 Days Reported Chlordiazepoxide HCl 25 Mg Capsule 2 Cap PO DAILY Vistaril (Hydroxyzine Pamoate) 50 Mg Cap 50 Mg PO BID Synthroid (Levothyroxine Sodium) 25 Mcg Tab 25 Mcg PO DAILY Crestor (Rosuvastatin Calcium) 40 Mg Tab 40 Mg PO DAILY Metformin (Metformin HCl) 500 Mg Tab 500 Mg PO BIDPC With meals Celexa (Citalopram Hydrobromide) 20 Mg Tab 20 Mg PO DAILY Review of Systems Except as stated in HPI: all other systems reviewed are Neg Physical Exam Narrative GENERAL: Well-developed, well-nourished in no acute distress. Nontoxic appearing. HEAD: Normocephalic, atraumatic. EYES: Pupils equal round and reactive. Extraocular motions intact. No scleral icterus. No injection or drainage. ENT: TMs clear without erythema. The external auditory canals clear. Nose: clear . Posterior pharynx is pink and moist. No tonsillar edema or exudate. Uvula midline. Airway patent. NECK: Trachea midline.Supple, nontender, moves head freely. No central bony tenderness or spasm. CARDIOVASCULAR: Regular rate and rhythm without murmurs, gallops, or rubs. RESPIRATORY: Clear to auscultation. Breath sounds equal bilaterally. No wheezes , rales, or rhonchi. GASTROINTESTINAL: Abdomen soft, non-tender, nondistended. No hepato-splenomegaly , or palpable masses. No guarding. EXTREMITIES: No clubbing, cyanosis, or edema. No joint tenderness, effusion, or edema noted. BACK: Nontender without deformity or crepitance. No flank tenderness. Data Data Last Documented VS Vital Signs Date Time Temp Pulse Resp B/P (MAP) Pulse Ox O2 Delivery O2 Flow Rate FiO2 03/04/17 16:34 98.1 114 18 120/68 (85) 95 Orders Orders Chest, Pa & Lat (03/04/17 16:39) MDM Medical Decision Making Medical Screen Exam Complete: Yes Emergency Medical Condition: Yes Medical Record Reviewed: Yes Interpretation(s) Last 24 hours Impressions Chest X-Ray 03/04/17 0559 Signed Impressions: Service Date/Time: Saturday, March 04, 2017 16:52 - CONCLUSION: 1. No acute cardiopulmonary disease. Sohail Montiel MD Differential Diagnosis MDM: High Differential diagnoses: Pneumonia, bronchitis, URI, asthma, RAD, urinary tract infection Narrative Course Patient's x-ray of her chest was read as no acute palmar process. Patient's exam is very reassuring. This is acute bronchitis Diagnosis Primary Impression: Acute bronchitis Qualified Codes: J20.9 - Acute bronchitis, unspecified Patient Instructions: General Instructions Additional Instructions: Rest. Increase fluids. Tylenol and Advil. Robitussin-DM. Bactrim DS, and albuterol. Followup with your Dr. in one week. Return to the ER for any problems. Med/Other Pt SpecificInfo: Prescription(s) given Disposition: 01 DISCHARGE HOME Condition: Stable Lalito Moyer Mar 04, 2017 20:05
[2017-03-04] MEDS ORDERED: BACT800T5 PO (20:06)
[2017-03-04] MEDS ORDERED: ALBU6.7H INH (20:06)
== END 2017-03-04 20:20 | disposition home or self-care (01) ==
LOC: NEPD 16:32
DX: J20.9 Acute bronchitis, unspecified (principal); R11.2 Nausea with vomiting, unspecified; R53.81 Other malaise; E11.9 Type 2 diabetes mellitus without complications; E78.00 Pure hypercholesterolemia, unspecified; F41.9 Anxiety disorder, unspecified; F32.9 Major depressive disorder, single episode, unspecified; F17.200 Nicotine dependence, unspecified, uncomplicated; Z79.899 Other long term (current) drug therapy
CPT/HCPCS: 71020; 99284

== ENCOUNTER 2017-07-02 17:31 | Emergency (ER) | payer MEDICARE ==
[~2017-07-02] VITALS: Ht 170.2 cm; Wt 72.5 kg
[~2017-07-02 17:31] MED LIST changes: +ALBU6.7H INH; +BACT800T5 PO; -HYDR-3533 PO; -MACR100C2 PO; -PHEN0.4T PO
[2017-07-02 17:32] VITALS: BP 126/62; PULSE 95; RESP 16; TEMP 98.8; O2SAT 96
[2017-07-02] MEDS ORDERED: IOHEXOL 350 MG/ML 10 ML VIAL (for RAD DIAG) IVCONTRAST ONE (17:32)
[2017-07-02 18:25] LABS: BILIRUBIN, URINE NEG (NEG); BLOOD, URINE SMALL (NEG); GLUCOSE,URINE NEG (NEG); KETONE, URINE NEG (NEG); NITRITE,URINE NEG (NEG); PH, URINE 5.5 (5.0-8.5); SQUAMOUS EPITHELIAL CELL URINE 2 /hpf (0-5); URINE COLOR YELLOW (YELLW/STRAW); URINE LEUKOCYTE ESTERASE LARGE (NEG)
[2017-07-02] MEDS ORDERED: SODIUM CHLOR 0.9% 1000 ML INJ 1,000 ML IV SCH (19:52)
[2017-07-02] MEDS ORDERED: SODIUM CHLORIDE 0.9% FLUSH 10 ML FLUSH IV FLUSH PRN (20:00)
[2017-07-02] MEDS ORDERED: MORPHINE SULFATE 4 MG/ML INJ IV PUSH ONE (20:00)
[2017-07-02] MEDS ORDERED: ONDANSETRON HCL 4 MG/2 ML VIAL IVP ONE (20:00)
[2017-07-02] MEDS ORDERED: cefTRIAXone INJ 1,000 MG in SODIUM CHLORIDE 0.9% INJ 100 ML IV ONE (20:15)
[2017-07-02 20:18] LABS: AUTOMATED NEUTROPHIL # 3.7 TH/MM3 (1.8-7.7); BASOPHIL # 0.1 TH/MM3 (0-0.2); BASOPHIL % 0.8 % (0.0-2.0); EOSINOPHIL # 0.3 TH/MM3 (0-0.4); EOSINOPHIL % 3.3 % (0.0-4.0); HEMATOCRIT 42.1 % (35.0-46.0); HEMOGLOBIN 14.4 GM/DL (11.6-15.3); LYMPH % 44.7 % (9.0-44.0); LYMPHOCYTE # 3.8 TH/MM3 (1.0-4.8); MEAN CELL VOLUME 86.5 FL (80.0-100.0); MEAN CORPUSCULAR HEMOGLOBIN 29.6 PG (27.0-34.0); MEAN CORPUSCULAR HGB CONC 34.2 % (32.0-36.0); MEAN PLATELET VOLUME 7.4 FL (7.0-11.0); MONO % 6.7 % (0.0-8.0); MONOCYTE # 0.6 TH/MM3 (0-0.9); NEUT % 44.5 % (16.0-70.0); PLATELET COUNT 313 TH/MM3 (150-450); RED BLOOD COUNT 4.86 MIL/MM3 (4.00-5.30); RED CELL DISTRIBUTION WIDTH 14.4 % (11.6-17.2); WHITE BLOOD COUNT 8.4 TH/MM3 (4.0-11.0)
[2017-07-02 20:21] LABS: PROTHROMBIN TIME - PATIENT 10.2 SEC (9.8-11.6)
[2017-07-02] MEDS ORDERED: MORPHINE SULFATE 2 MG/ML INJ IV PUSH ONE (20:30)
[2017-07-02 20:35] LABS: ALT (GPT) 31 U/L (10-53)
[2017-07-02 20:38] LABS: ALBUMIN 3.4 GM/DL (3.4-5.0); ALKALINE PHOSPHATASE 117 U/L (45-117); AST (GOT) 24 U/L (15-37); BICARBONATE 29.1 MEQ/L (21.0-32.0); BLOOD UREA NITROGEN 11 MG/DL (7-18); CALCIUM 8.5 MG/DL (8.5-10.1); CHLORIDE 103 MEQ/L (98-107); CREATININE 0.85 MG/DL (0.50-1.00); GLOMERULAR FILTRATION RATE 68 ML/MIN (>89); GLUCOSE,RANDOM 129 MG/DL (74-106); LIPASE 251 U/L (73-393); SODIUM (NA) 137 MEQ/L (136-145); TOTAL BILIRUBIN ADULT 0.2 MG/DL (0.2-1.0)
--- NOTE | 2017-07-02 20:45 | PD ---
HPI Chief Complaint: Flank/Kidney Pain Time Seen by Provider: 19:47 Travel History International Travel<30 days: No Contact w/Intl Traveler<30days: No Traveled to known affect area: No History of Present Illness HPI 61-year-old female here for evaluation of left flank pain, dysuria, and chills. She reports dysuria and chills for the last couple of days with frequent urination as well as burning with urination. Today she began having left flank pain which started this morning and has persisted and worsened throughout the day. Pain is severe, constant, no modifying factors. She has had associated nausea but no vomiting. She reports history of UTIs and pyelonephritis, and believes that that is what may be going on today. PFSH Past Medical History Hx Anticoagulant Therapy: Yes (81MG ASA) Arthritis: No Blood Disorders: No Anxiety: Yes (Panic attacks) Depression: Yes Heart Rhythm Problems: No Cancer: No Cardiovascular Problems: No High Cholesterol: Yes COPD: No Cerebrovascular Accident: No Diabetes: Yes Patient Takes Glucophage: Yes (metformin) Diminished Hearing: No Endocrine: No Gastrointestinal Disorders: No Genitourinary: Yes (frequent UTI) Headaches: Yes Immune Disorder: No Musculoskeletal: No Neurologic: Yes Psychiatric: Yes Reproductive: No Respiratory: No Migraines: No Seizures: No Sickle Cell Disease: No Thyroid Disease: Yes Tetanus Vaccination: > 5 Years Influenza Vaccination: Yes Menopausal: Yes : 3 Para: 3 Dilation and Curettage (D&C): Yes Past Surgical History Abdominal Surgery: No AICD: No Arteriovenous Shunt: No Cardiac Surgery: No Ear Surgery: No Endocrine Surgery: No Eye Surgery: No Genitourinary Surgery: No Gynecologic Surgery: Yes (D&C 2005) Insulin Pump: No Joint Replacement: No Neurologic Surgery: No Oral Surgery: Yes (teeth pulled) Pacemaker: No Thoracic Surgery: No Other Surgery: Yes (knee surgery 2003) Social History Alcohol Use: Yes (Social) Tobacco Use: Yes (1/2 PPD) Substance Use: No Allergies-Medications (Allergen,Severity, Reaction): Coded Allergies: codeine (Unverified Allergy, Severe, FAINTED/NAUSEA AND VOMITING, 07/02/17 ) Reported Meds & Prescriptions Reported Meds & Active Scripts Active Proventil Hfa 6.7 GM Inh (Albuterol Sulfate) 90 Mcg/Act Aer 2 Puff INH Q6H PRN Reported Chlordiazepoxide HCl 25 Mg Capsule 2 Cap PO DAILY Vistaril (Hydroxyzine Pamoate) 50 Mg Cap 50 Mg PO BID Synthroid (Levothyroxine Sodium) 25 Mcg Tab 25 Mcg PO DAILY Crestor (Rosuvastatin Calcium) 40 Mg Tab 40 Mg PO DAILY Metformin (Metformin HCl) 500 Mg Tab 500 Mg PO DAILY With meals Celexa (Citalopram Hydrobromide) 20 Mg Tab 20 Mg PO DAILY Review of Systems Except as stated in HPI: all other systems reviewed are Neg Physical Exam Narrative GENERAL: Well-developed, well-nourished, mild distress secondary to pain. SKIN: Focused skin assessment warm/dry. No rash. HEAD: Atraumatic. Normocephalic. EYES: Pupils equal and round. No scleral icterus. No injection or drainage. ENT: No nasal bleeding or discharge. Mucous membranes pink and moist. NECK: Trachea midline. No JVD. CARDIOVASCULAR: Regular rate and rhythm. No murmur appreciated. RESPIRATORY: No accessory muscle use. Clear to auscultation. Breath sounds equal bilaterally. GASTROINTESTINAL: Abdomen soft, non-tender, nondistended. MUSCULOSKELETAL: No obvious deformities. No clubbing. No cyanosis. No edema. Moderate left CVA tenderness. No right CVA tenderness. NEUROLOGICAL: Awake and alert. No obvious cranial nerve deficits. Motor grossly within normal limits. Normal speech. PSYCHIATRIC: Appropriate mood and affect; insight and judgment normal. Data Data Last Documented VS Vital Signs Date Time Temp Pulse Resp B/P (MAP) Pulse Ox O2 Delivery O2 Flow Rate FiO2 07/02/17 17:32 98.8 95 16 126/62 (83) 96 Orders Orders Urinalysis - C+S If Indicated (07/02/17 17:49) Complete Blood Count With Diff (07/02/17 19:52) Comprehensive Metabolic Panel (07/02/17 19:52) Lipase (07/02/17 19:52) Prothrombin Time / Inr (Pt) (07/02/17 19:52) Act Partial Throm Time (Ptt) (07/02/17 19:52) Ct Abd/Pel W Iv Contrast(Rout) (07/02/17 19:52) Iv Access Insert/Monitor (07/02/17 19:52) Ecg Monitoring (07/02/17 19:52) Oximetry (07/02/17 19:52) Morphine Inj (Morphine Inj) (07/02/17 20:00) Ondansetron Inj (Zofran Inj) (07/02/17 20:00) Sodium Chlor 0.9% 1000 Ml Inj (Ns 1000 M (07/02/17 19:52) Sodium Chloride 0.9% Flush (Ns Flush) (07/02/17 20:00) Ceftriaxone Inj (Rocephin Inj) (07/02/17 20:15) Morphine Inj (Morphine Inj) (07/02/17 20:30) Urine Culture (07/02/17 20:41) Iohexol 350 Inj (Omnipaque 350 Inj) (07/02/17 17:32) Ketorolac Inj (Toradol Inj) (07/02/17 22:00) Labs Laboratory Tests Test 07/02/17 17:55 07/02/17 19:55 Urine Color YELLOW Urine Turbidity CLEAR Urine pH 5.5 Urine Specific [place] 1.013 Urine Protein NEG mg/dL Urine Glucose (UA) NEG mg/dL Urine Ketones NEG mg/dL Urine Occult Blood SMALL Urine Nitrite NEG Urine Bilirubin NEG Urine Urobilinogen LESS THAN 2.0 MG/DL Urine Leukocyte Esterase LARGE Urine RBC 1 /hpf Urine WBC 6 /hpf Urine Squamous Epithelial Cells 2 /hpf Microscopic Urinalysis Comment CULT NOT INDICATED White Blood Count 8.4 TH/MM3 Red Blood Count 4.86 MIL/MM3 Hemoglobin 14.4 GM/DL Hematocrit 42.1 % Mean Corpuscular Volume 86.5 FL Mean Corpuscular Hemoglobin 29.6 PG Mean Corpuscular Hemoglobin Concent 34.2 % Red Cell Distribution Width 14.4 % Platelet Count 313 TH/MM3 Mean Platelet Volume 7.4 FL Neutrophils (%) (Auto) 44.5 % Lymphocytes (%) (Auto) 44.7 % Monocytes (%) (Auto) 6.7 % Eosinophils (%) (Auto) 3.3 % Basophils (%) (Auto) 0.8 % Neutrophils # (Auto) 3.7 TH/MM3 Lymphocytes # (Auto) 3.8 TH/MM3 Monocytes # (Auto) 0.6 TH/MM3 Eosinophils # (Auto) 0.3 TH/MM3 Basophils # (Auto) 0.1 TH/MM3 CBC Comment DIFF FINAL Differential Comment Prothrombin Time 10.2 SEC Prothromb Time International Ratio 1.0 RATIO Activated Partial Thromboplast Time 25.7 SEC Blood Urea Nitrogen 11 MG/DL Creatinine 0.85 MG/DL Random Glucose 129 MG/DL Total Protein 7.0 GM/DL Albumin 3.4 GM/DL Calcium Level 8.5 MG/DL Alkaline Phosphatase 117 U/L Aspartate Amino Transf (AST/SGOT) 24 U/L Alanine Aminotransferase (ALT/SGPT) 31 U/L Total Bilirubin 0.2 MG/DL Sodium Level 137 MEQ/L Potassium Level 3.8 MEQ/L Chloride Level 103 MEQ/L Carbon Dioxide Level 29.1 MEQ/L Anion Gap 5 MEQ/L Estimat Glomerular Filtration Rate 68 ML/MIN Lipase 251 U/L [facility] Medical Decision Making Medical Screen Exam Complete: Yes Emergency Medical Condition: Yes Medical Record Reviewed: Yes Differential Diagnosis Pyelonephritis, nephrolithiasis, ureterolithiasis, UTI, cystitis, colitis, AAA, dissection, Narrative Course Initial vital signs show heart rate 95, blood pressure 126/62, pulse ox 96% on room air, tympanic temp of 98.8F. CBC is unremarkable. CMP is essentially unremarkable. Lipase is 251. UA shows small occult blood, large leukocyte esterase, [address] abdomen pelvis: CONCLUSION: 1. Hepatic steatosis. 2. Diffuse atherosclerotic disease. 3. No acute findings in the abdomen and pelvis. Patient was made aware of all findings. She was given a dose of IV morphine and reports that her pain has completely resolved. She is resting comfortably. She is requesting a dose of IV Toradol as this has helped her in the past. She was given a dose of IV Rocephin for her UA findings. At this point she is stable for discharge home with outpatient follow-up with a primary care physician this week. She was advised on when to return to the emergency department. She verbalizes understating and agreement with plan. Diagnosis Primary Impression: Flank pain Referrals: Primary Care Physician 3 days Additional Instructions: Follow-up with a primary care physician this week. Return to the emergency department for worsening symptoms or any other concerns. Scripts Naproxen (Naproxen) 500 Mg Tab 500 MG PO BID for 7 Days, #14 TAB 0 Refills Prov: Napoleon Guthrie MD 07/02/17 Nitrofurantoin Monohydrate Macrocrystals (Macrobid) 100 Mg Cap 100 MG PO BID for Infection for 7 Days, #14 CAP 0 Refills Prov: Napoleon Guthrie MD 07/02/17 Disposition: 01 DISCHARGE HOME Condition: Stable Napoleon Guthrie MD Jul 02, 2017 20:45
--- NOTE | 2017-07-02 21:46 | RADRPT ---
EXAM DATE/TIME: 07/02/2017 21:11 [facility] COMPARISON: CT ABDOMEN & PELVIS W CONTRAST, January 16, 2017, 18:12. INDICATIONS : Right flank pain with burning urination. IV CONTRAST: 95 cc Omnipaque 350 (iohexol) IV ORAL CONTRAST: No oral contrast ingested. RADIATION DOSE: 14.50 CTDIvol (mGy) MEDICAL HISTORY : Diabetes mellitus type 2. SURGICAL HISTORY : None. ENCOUNTER: Initial ACUITY: 2 days PAIN SCALE: 6/10 LOCATION: Right flank TECHNIQUE: Volumetric scanning of the abdomen and pelvis was performed. Using automated exposure control and ad justment of the mA and/or kV according to patient size, radiation dose was kept as low as reasonably achievable to obtain optimal diagnostic quality images. DICOM format image data is available electro nically for review and comparison. FINDINGS: LOWER LUNGS: Right lower lobe atelectasis. Coronary artery calcifications. LIVER: Diffuse fatty infiltration of the liver. No focal mass. Gallbladder within normal limits. SPLEEN: Normal size without lesion. PANCREAS: Within normal limits. KIDNEYS: 2.7 cm left renal cyst. No evidence of hydronephrosis. Kidneys otherwise within normal limits. ADRENAL GLANDS: Within normal limits. VASCULAR: Diffuse atherosclerotic disease. Aortic diameter are within normal limits. BOWEL/MESENTERY: No evidence of bowel dilatation. No free air or free fluid. Appendix within normal limits. ABDOMINAL WALL: Within normal limits. RETROPERITONEUM: There is no lymphadenopathy. BLADDER: No wall thickening or mass. REPRODUCTIVE: Within normal limits. INGUINAL: There is no lymphadenopathy or hernia. MUSCULOSKELETAL: Within normal limits for patient age. CONCLUSION: 1. Hepatic steatosis. 2. Diffuse atherosclerotic disease. 3. No acute findings in the abdomen and pelvis. Home Blankenship MD on July 02, 2017 at 21:40 Board Certified Radiologist. This report was verified electronically.
[2017-07-02] MEDS ORDERED: KETOROLAC TROMETHAMINE 30 MG/ML (IVP) VIAL IV PUSH ONE (22:00)
[2017-07-02] MEDS ORDERED: MACR100C2 PO (22:03)
[2017-07-02] MEDS ORDERED: NAPR500T2 PO (22:03)
== END 2017-07-02 22:20 | disposition home or self-care (01) ==
LOC: NEPD 17:31
DX: R10.9 Unspecified abdominal pain (principal); R30.0 Dysuria; E11.9 Type 2 diabetes mellitus without complications; Z79.01 Long term (current) use of anticoagulants; Z72.0 Tobacco use
CPT/HCPCS: 74177; 80053; 81001; 83690; 85025; 85610; 85730; 87086; 96365; 96375; 99285; J0696; J1885; J2270; J2405; J7030; Q9967